=== PATIENT | female | born 1965 | race Caucasian/White ===

== ENCOUNTER 2021-03-01 17:22 | Emergency (ER) | payer SELFPAY ==
[~2021-03-01] VITALS: Ht 170.2 cm; Wt 59.0 kg
[2021-03-01 18:42] VITALS: BP 146/78
== END 2021-03-01 19:55 | disposition home or self-care (01) ==
LOC: ER 17:22
DX: S42.022A Displaced fracture of shaft of left clavicle, initial encounter for closed fracture (principal); F17.210 Nicotine dependence, cigarettes, uncomplicated; Z88.6 Allergy status to analgesic agent; Z88.8 Allergy status to other drugs, medicaments and biological substances; X58.XXXA Exposure to other specified factors, initial encounter; Y93.89 Activity, other specified; Y92.89 Other specified places as the place of occurrence of the external cause; Y99.8 Other external cause status
CPT/HCPCS: 29105; 73030

== ENCOUNTER 2021-08-21 07:32 | Emergency (ER) | payer MEDICAID, OTHER ==
[~2021-08-21] VITALS: Ht 170.2 cm; Wt 61.2 kg
[2021-08-21 08:07] VITALS: BP 129/82
[2021-08-21] MEDS ORDERED: IBUP800T27 PO (10:03)
== END 2021-08-21 10:40 | disposition home or self-care (01) ==
LOC: ER 07:32
DX: M25.512 Pain in left shoulder (principal); F17.210 Nicotine dependence, cigarettes, uncomplicated; Z79.1 Long term (current) use of non-steroidal anti-inflammatories (NSAID); Z88.8 Allergy status to other drugs, medicaments and biological substances
CPT/HCPCS: 73000; 73200